=== PATIENT | female | born 1990 | race African-American/Black ===

== ENCOUNTER → 2019-06-28 | Outpatient (CLI) | payer OTHER ==
--- NOTE | 2019-06-28 12:12 | RAD ---
Transvaginal ultrasound History: Fibroid Comparison: None. Findings: Multiple transvaginal sonographic images of the pelvis are submitted. Retroverted uterus measured 7.2 x 6.4 x 4.3 cm. Endometrium measured 0.8 cm in thickness. There is a somewhat heterogeneous, partially hypoechoic mass in the myometrium of the right uterus near the fundus about 1.5 x 2 x 1.5 cm. There is a more anterior left uterine mass closer to the fundus about 1.6 x 1.3 x 1.2 cm, extent near the endometrial complex. There is minimal free fluid eccentric to left adnexal region. Left ovary measured 3.2 x 2.3 x 1.8 cm with normal low resistance vascularity. There is a hypoechoic lesion of the left ovary about 1.5 x 1.2 x 1.1 cm, several other follicles present primarily at the periphery. Right ovary measured 3 x 1.9 x 1.5 cm with normal low resistance vascularity. There are some peripheral follicles of the right ovary. Impression: 1. There are uterine masses most likely due to fibroids. 2. There is minimal free fluid eccentric to left adnexal region. 3. There is a cyst or dominant follicle of the left ovary up to 1.5 cm. There are several follicles of the ovaries, peripheral distribution which can be associated with polycystic ovarian syndrome although nonspecific. Electronically signed by: Melquiades Zhang MD (06/28/2019 12:09 PM) [id number]
== END | disposition home or self-care (01) ==
LOC: US 09:45
PROVIDERS: ATTEND Obstetrics & Gynecology
DX: E28.2 Polycystic ovarian syndrome (principal); N85.4 Malposition of uterus; D21.9 Benign neoplasm of connective and other soft tissue, unspecified
CPT/HCPCS: 76830

== ENCOUNTER 2019-12-03 17:54 | Emergency (ER) | payer OTHER ==
[~2019-12-03] VITALS: Ht 154.9 cm; Wt 120.8 kg
[2019-12-03 18:00] VITALS: BP 127/69
--- NOTE | 2019-12-03 19:27 | PHYS DOC ---
Past History Past Medical History: No Pertinent History Past Surgical History: No Surgical History Smoking: Non-smoker General Adult EDM: Chief Complaint: ALLERGIC REACTION HPI: HPI: A 29 y/o female presents for vaginal dryness that began 3 days. Yesterday she finished a 7-day series of antibiotics for a UTI. She also finished a 4-day long prescription of MetroGel. The itchiness and dryness was most noticeable a few days ago. She denies any pain upon urination. She denies that it feels like her previous UTI. She is 12 weeks and she currently has an ASSISTANT BOOKKEEPER who she sees consistently is up-to-date with her care. She denies any vaginal pain or radiation of pain in the pelvis. She denies any vaginal bleeding. She notes that the skin within her vagina is "flaky ". She states that if she wipes too hard that it causes the vaginal tissue to bleed. She does not appear in any apparent distress. Review of Systems: Review of Systems: Constitutional: Denies fever or chills Eyes: Denies redness or eye pain HENT: Denies nasal congestion or sore throat Respiratory: Denies cough or shortness of breath Cardiovascular: Denies chest pain or palpitations GI: Denies abdominal pain, nausea, or vomiting : Denies dysuria or hematuria. Complains of vaginal dryness Musculoskeletal: Denies back pain or joint pain Integument: Denies rash or skin lesions Neurologic: Denies headache, focal weakness or sensory changes Complete systems were reviewed and found to be within normal limits, except as documented in this note. Allergies: Allergies: Allergies Coded Allergies Type Severity Reaction Last Updated Verified No Known Drug Allergies 12/03/19 No Physical Exam: PE: Constitutional: Well developed, well nourished, no acute distress, non-toxic appearance. [] HENT: Normocephalic, atraumatic, bilateral external ears normal, oropharynx moist, no oral exudates, nose normal. [] Eyes: PERRLA, EOMI, conjunctiva normal, no discharge. [] Neck: Normal range of motion, no tenderness, supple, no stridor. [] Cardiovascular:Heart rate regular rhythm, no murmur [] Lungs & Thorax: Bilateral breath sounds clear to auscultation [] Abdomen: Bowel sounds normal, soft, no tenderness, no masses, no pulsatile masses. [] Skin: Warm, dry, no erythema, no rash. [] Back: No tenderness, no CVA tenderness. [] Extremities: No tenderness, no cyanosis, no clubbing, ROM intact, no edema. [] Neurologic: Alert and oriented X 3, normal motor function, normal sensory function, no focal deficits noted. [] Psychologic: Affect normal, judgement normal, mood normal. [] EKG: EKG: [] Radiology/Procedures: Radiology/Procedures: [] Course & Med Decision Making: Course & Med Decision Making Patient presented to the ED for vaginal dryness. This began after completing a course of 7 days of antibiotics and MetroGel for UTI. She complains of the tissue within the vagina to be flaky and bleed if she wipes too hard but beyond this there is no vaginal bleeding. The patient is also 12 weeks and up-to-date with visits to her ASSISTANT BOOKKEEPER. Upon physical examination it appears to be tissue irritation which could have been caused by the antibiotics or vaginal gel. He recommended that the patient follows up with her ASSISTANT BOOKKEEPER and avoid using any more MetroGel. Recommend that the patient stays hydrated and make sure to use care with vaginal hygiene and avoid doing anything that causes more pain or irritation. Dragon Disclaimer: Dragon Disclaimer: This electronic medical record was generated, in whole or in part, using a voice recognition dictation system. Departure Departure: Impression: Primary Impression: Vaginal itching Additional Impression: Qualified Codes: Z3A.12 - 12 weeks gestation of Disposition: 01 HOME/RESIDENCE PRIOR TO ADM Condition: STABLE Referrals: PATTI CELAYA MD (PCP) Patient Instructions: ABCs of , Candidal Vulvovaginitis, Uion-es-Vdur, Itching-Brief Additional Instructions: Your symptoms are likely secondary to your recent use of antibiotic gel and oral antibiotics. Please allow your body to adjust back to a normal state. Please practice "pelvic rest". No intercourse or other irritants to area until symptoms have resolved. You may also take over the counter Probiotics to help restore your body's equilibrium. Scripts Fluconazole (DIFLUCAN) 200 Mg Tablet 1 TAB PO DAILY for Yeast infection, #1 TAB Start this medication if still having any symptoms on Tuesday12/10/19 Prov: BEVERLEY CALDERON DO 12/03/19 Justification of Admission: Justification of Admission: Justification of Admission Dx: N/A BEVERLEY CALDERON DO Dec 03, 2019 19:26
[2019-12-03] MEDS ORDERED: FLUCONAZOLE 100 MG TABLET. PO ONE (19:45)
[2019-12-03] MEDS ORDERED: FLUC200T PO (19:46)
== END 2019-12-03 19:59 | disposition home or self-care (01) ==
LOC: ER 17:54
DX: O26.891 Other specified pregnancy related conditions, first trimester (principal); N89.8 Other specified noninflammatory disorders of vagina; O23.41 Unspecified infection of urinary tract in pregnancy, first trimester; Z3A.12 12 weeks gestation of pregnancy
CPT/HCPCS: 99283